=== PATIENT | female | born 1990 | race Caucasian/White ===

== ENCOUNTER → 2018-09-06 13:45 | Outpatient (CLI) | payer OTHER, SELFPAY ==
[2018-09-06 17:22] LABS: Chlamydia Trachomatis by PCR Negative (Negative); Neisserai gonorrhoeae by PCR Negative (Negative); Probe Check PASS; Sample Adequacy Control PASS; Specimen Processing Control PASS
[2018-09-12 17:20] LABS: HPV Reflexed? NOT INDICATED
== END ==
PROVIDERS: Visit Provider Obstetrics & Gynecology
DX: Z12.4 Encounter for screening for malignant neoplasm of cervix (principal); Z11.3 Encounter for screening for infections with a predominantly sexual mode of transmission
CPT/HCPCS: 87491; 87591; 87624; 88175; G0145

== ENCOUNTER → 2018-10-09 09:27 | Outpatient (CLI) | payer OTHER, SELFPAY ==
[2018-10-09 11:34] LABS: Progesterone Level 0.88 ng/mL (See Comment)
== END ==
PROVIDERS: Visit Provider Obstetrics & Gynecology
DX: N97.0 Female infertility associated with anovulation (principal)
CPT/HCPCS: 36415; 84144

== ENCOUNTER → 2018-11-27 09:44 | Outpatient (CLI) | payer OTHER, SELFPAY ==
[2018-11-27 11:05] LABS: Progesterone Level 0.42 ng/mL (See Comment)
== END ==
PROVIDERS: Visit Provider Obstetrics & Gynecology
DX: N97.0 Female infertility associated with anovulation (principal)
CPT/HCPCS: 36415; 84144

== ENCOUNTER 2019-01-25 10:30 | Outpatient (RCR) | payer OTHER, SELFPAY ==
[2019-01-25 12:03] LABS: Progesterone Level 0.58 ng/mL (See Comment)
== END 2019-01-25 12:00 | disposition home or self-care (01) ==
LOC: LAB 10:30
PROVIDERS: Family Provider Family Medicine; PCP Family Medicine; Referring Provider Obstetrics & Gynecology; Visit Provider Obstetrics & Gynecology
DX: N97.0 Female infertility associated with anovulation (principal)
CPT/HCPCS: 36415; 84144

== ENCOUNTER → 2019-03-01 09:27 | Outpatient (CLI) | payer OTHER, SELFPAY ==
[2019-03-01 12:41] LABS: hCG Titer Quant., Serum < 1 mIU/mL (1-3)
== END ==
PROVIDERS: Visit Provider Obstetrics & Gynecology
DX: Z32.01 Encounter for pregnancy test, result positive (principal)
CPT/HCPCS: 36415; 84702

== ENCOUNTER 2019-04-27 12:19 | Outpatient (RCR) | payer OTHER, SELFPAY ==
[2019-04-27 13:39] LABS: Progesterone Level 0.39 ng/mL (See Comment)
== END 2019-04-27 18:00 | disposition home or self-care (01) ==
LOC: LAB 12:19
PROVIDERS: Family Provider Family Medicine; PCP Family Medicine; Referring Provider Obstetrics & Gynecology; Visit Provider Obstetrics & Gynecology
DX: N97.0 Female infertility associated with anovulation (principal)
CPT/HCPCS: 36415; 84144

== ENCOUNTER → 2019-07-10 09:39 | Outpatient (CLI) | payer OTHER, SELFPAY ==
[2019-07-10 10:25] LABS: Internal QC Validated? YES +Cl - CLEAR BKGD; Pregnancy, Serum, hCG Quali. NEGATIVE Negative
== END ==
PROVIDERS: PCP Family Medicine; Visit Provider Obstetrics & Gynecology
DX: N91.2 Amenorrhea, unspecified (principal)
CPT/HCPCS: 36415; 84703

== ENCOUNTER → 2019-12-22 11:40 | Outpatient (CLI) | payer OTHER, SELFPAY ==
[2019-12-24 08:17] LABS: Progesterone Level 0.83 ng/mL (See Comment)
== END ==
PROVIDERS: PCP Family Medicine; Referring Provider Obstetrics & Gynecology; Visit Provider Obstetrics & Gynecology
DX: N97.0 Female infertility associated with anovulation (principal)
CPT/HCPCS: 36415; 84144

== ENCOUNTER → 2020-03-19 14:22 | Outpatient (CLI) | payer OTHER, SELFPAY ==
[2020-03-25 14:38] LABS: HPV Reflexed? NOT INDICATED
== END ==
PROVIDERS: PCP Family Medicine; Visit Provider Obstetrics & Gynecology
DX: Z12.4 Encounter for screening for malignant neoplasm of cervix (principal)
CPT/HCPCS: 88175; G0145

== ENCOUNTER → 2020-05-03 11:17 | Outpatient (CLI) | payer OTHER, SELFPAY ==
[2020-05-03 12:23] LABS: Hemoglobin A1c 5.3 % (3.8-5.6)
[2020-05-03 12:37] LABS: Prolactin 12.7 ng/mL; T4 Free Direct 1.17 ng/dL (0.76-1.46); Thyroid Stim Hormone (TSH) 1.03 uIU/mL (0.358-3.74)
[2020-05-05 09:29] LABS: HIV - WCH Non-Reactive (Nonreactive); Hepatitis B Surface Antigen Non-Reactive (Nonreactive); Hepatitis C Antibody Non-Reactive (Nonreactive); Progesterone Level 0.63 ng/mL (See Comment); Rubella IgG Reactive (Nonreactive)
[2020-05-05 17:05] LABS: V-Zoster IgG (Immunity) 1951 index (Immune >165)
[2020-05-08 02:38] LABS: Rapid Plasmin Reagin (RPR) NONREACTIVE (NONREACTIVE)
[2020-05-08 22:43] LABS: 17-Hydroxyprogesterone 63 ng/dL (.)
== END ==
PROVIDERS: PCP Family Medicine
DX: E16.8 Other specified disorders of pancreatic internal secretion (principal); E22.1 Hyperprolactinemia; E02 Subclinical iodine-deficiency hypothyroidism; Z01.83 Encounter for blood typing; E28.1 Androgen excess; Z11.59 Encounter for screening for other viral diseases
CPT/HCPCS: 36415; 82627; 83036; 83498; 84144; 84146; 84403; 84439; 84443; 86592; 86703; 86762; 86787; 86803; 86850; 86900; 86901; 87340; 82626

== ENCOUNTER → 2021-11-11 | Outpatient (CLI) | payer OTHER, SELFPAY ==
[2021-11-11 17:03] LABS: Internal QC Validated? YES +Cl - CLEAR BKGD; Pregnancy, Serum, hCG Quali. NEGATIVE Negative
[2021-11-15 08:28] LABS: HPV Reflexed? NOT INDICATED
== END | disposition home or self-care (01) ==
LOC: WOBLAB 15:15
PROVIDERS: PCP Family Medicine; Visit Provider Obstetrics & Gynecology
DX: N93.9 Abnormal uterine and vaginal bleeding, unspecified (principal); Z11.3 Encounter for screening for infections with a predominantly sexual mode of transmission
CPT/HCPCS: 36415; 84703; 88175; G0145